=== PATIENT | female | born 1970 | race Caucasian/White ===

== ENCOUNTER 2017-05-26 08:04 | Observation (INO) | payer OTHER ==
--- NOTE | 2017-05-24 17:50 | Diagnostic Imaging Report ---
PROCEDURE: Frontal and lateral views of the chest. COMPARISON: None. INDICATIONS: PRE-OP ON CERVICAL SPINE FINDINGS: Lines/tubes: None. Lungs: The lungs are well inflated and clear. There is no evidence of pneumonia or pulmonary edema. Tiny right basilar nodular density, likely a calcified granuloma. Pleura: There is no pleural effusion or pneumothorax. Heart and mediastinum: The heart and the mediastinum are normal. Bilateral breast implants. Bones: No acute bony abnormality. IMPRESSION: 1. No acute cardiopulmonary disease. Dictated by: Chapin Dickerson M.D. on 05/24/2017 at 17:57 Electronically approved by: Chapin Dickerson M.D. on 05/24/2017 at 17:57
--- NOTE | 2017-05-24 17:53 | Diagnostic Imaging Report ---
PROCEDURE: C-SPINE AP AND LAT WITH FLEX AND EXT COMPARISON: 01/01/16 INDICATIONS: PRE-OP ON CERVICAL SPINE FINDINGS: C1 through C7 are visualized on the lateral view. The spine is in anatomic alignment without evidence of fracture or subluxation. Vertebral body heights are maintained. Status post C5-C6 anterior fusion. Hardware is intact. No instability on flexion/extension views. The prevertebral soft tissues are normal. CONCLUSION: No acute fracture or subluxation of cervical spine. Status post anterior C5-C6 fusion without evidence of instability. Dictated by: Chapin Dickerson M.D. on 05/24/2017 at 18:00 Electronically approved by: Chapin Dickerson M.D. on 05/24/2017 at 18:00
[2017-05-24 17:54] LABS: BASOPHILS % 0.6 % (0.0-1.0); EOSINOPHILS # (AUTO) 0.1 (0.0-0.4); EOSINOPHILS % 2.3 % (0.0-6.0); HEMATOCRIT 36.9 % (34.2-44.1); HEMOGLOBIN 12.1 g/dL (12.0-16.0); LYMPHOCYTES % 37.5 % (18.0-39.1); MEAN CORPUSCULAR HEMOGLOBIN 28.7 pg (28-32); MEAN CORPUSCULAR HGB CONC 32.8 g/dL (31-35); MEAN CORPUSCULAR VOLUME 87.6 fL (81-99); MONOCYTES # (AUTO) 0.7 (0.2-0.8); MONOCYTES % 12.5 % (4.4-11.3); NEUTROPHILS # (AUTO) 2.5 (2.1-6.9); NEUTROPHILS % 46.9 % (38.7-80.0); PLATELET COUNT 295 x10e3/uL (140-360); RED BLOOD COUNT 4.21 x10e6/uL (3.6-5.1); RED CELL DISTRIBUTION WIDTH 12.7 % (11.7-14.4)
[2017-05-24 18:03] LABS: INR 0.8; PROTHROMBIN TIME 11.5 seconds (11.9-14.5)
[2017-05-24 18:04] LABS: PARTIAL THROMBOPLASTIN TIME 27.8 seconds (23.8-35.5)
[2017-05-24 18:08] LABS: ANION GAP 10.6 mmol/L (8-16); BLOOD UREA NITROGEN 16 mg/dL (7-26); BUN/CREATININE RATIO 20 (6-25); CALCIUM 8.6 mg/dL (8.4-10.2); CARBON DIOXIDE 27 mmol/L (22-29); CHLORIDE 106 mmol/L (98-107); CREATININE, SERUM 0.79 mg/dL (0.57-1.11); EST GLOMERULAR FILTRATION RATE > 60 ML/MIN (60-); GLUCOSE 93 mg/dL (74-118); POTASSIUM 3.6 mmol/L (3.5-5.1); SODIUM 140 mmol/L (136-145)
[~2017-05-26] VITALS: Ht 170.2 cm; Wt 77.6 kg
[~2017-05-26 08:04] MED LIST: BACITRACIN 50,000 UNIT VIAL ONE; BUPIVACAINE 0.5%/EPI 30 ML SDV INJ ONE; GELATIN SPONGE SZ 100 ONE; LIDOCAINE HCL (LTA) 4 ML SOLN ONE; THROMBIN FOR SOLN 5,000 UNIT VIAL ONE; TRAMADOL PO; ULTRAM 50MG50 MG PO
[2017-05-26] MEDS ORDERED: CEFAZOLIN SOD 1 GM/NS 50ML 50 ML IV ONE (08:36)
[2017-05-26] MEDS: LACTATED RINGER'S 1,000 ML IV SCH ×2 (11:51→20:11)
[2017-05-26] MEDS ORDERED: CEPACOL SORE THROAT LOZENGES PO PRN (12:00)
[2017-05-26] MEDS ORDERED: ACETAMINOPHEN 325 MG TAB PO PRN (12:00)
[2017-05-26] MEDS ORDERED: ZOLPIDEM TARTRATE 5 MG TAB PO PRN (12:00)
[2017-05-26] MEDS ORDERED: MORPHINE SULFATE 5 MG/ML VIAL IM PRN (12:00)
[2017-05-26] MEDS ORDERED: PROMETHAZINE HCL (IM) 25 MG/ML VIAL IM PRN (12:00)
[2017-05-26] MEDS ORDERED: MAGNESIUM/ALUMINUM/SIMETHICONE 30 ML UDC PO PRN (12:00)
[2017-05-26] MEDS ORDERED: HYDROMORPHONE 2MG/ML INJ IV PRN (12:00)
[2017-05-26] MEDS ORDERED: ONDANSETRON HCL INJ 2 MG/ML VIAL IV PRN (12:00)
[2017-05-26] MEDS ORDERED: FENTANYL CITRATE/PF 100MCG/2 ML INJ ONE ×2 (12:18→12:32)
[2017-05-26] MEDS ORDERED: MIDAZOLAM HCL 2 MG/2 ML VIAL ONE (12:32)
[2017-05-26 12:58] VITALS: BP 134/71
[2017-05-26] MEDS ORDERED: CEFAZOLIN SOD 1 GM/NS 50ML 50 ML IV SCH (14:00)
[2017-05-26] MEDS ORDERED: GLYCOPYRROLATE INJ 1MG/ 5 ML SYR ONE (14:16)
[2017-05-26] MEDS ORDERED: ROCURONIUM BROMIDE 10 MG/ML 5ML VIAL ONE (14:16)
[2017-05-26] MEDS ORDERED: DEXAMETHASONE SOD PHOS INJ 4 MG/ML VIAL ONE (14:16)
[2017-05-26] MEDS ORDERED: NEOSTIGMINE 5 MG/5ML SYR ONE (14:16)
[2017-05-26] MEDS ORDERED: ONDANSETRON HCL INJ 2 MG/ML VIAL ONE (14:16)
[2017-05-26] MEDS ORDERED: PROPOFOL IV EMULSION 10 MG/ML 20 ML VIAL ONE (14:16)
[2017-05-26] MEDS ORDERED: LIDOCAINE HCL 2% LOCAL INJ 5 ML SDV VIAL INJ ONE (14:16)
[2017-05-26] MEDS ORDERED: DESFLURANE 240 ML BTL INH ONE (14:16)
[2017-05-26] MEDS: WATER STERILE 10 ML VIAL IV SCH ×2 (14:17→22:11)
[2017-05-26] MEDS: CEFAZOLIN SOD 1 GM VIAL IV SCH ×2 (14:17→22:11)
[2017-05-26] MEDS: CARISOPRODOL 350 MG TAB PO PRN ×2 (14:40→22:42)
[2017-05-26] MEDS: OXYCODONE/ACETAMINOPHEN 5-325 1 EACH TABLET PO PRN ×2 (14:40→22:42)
[2017-05-26 14:52] VITALS: BP 134/71
[2017-05-26 15:37] VITALS: BP 122/75
--- NOTE | 2017-05-26 15:54 | Operative Report ---
DATE OF PROCEDURE: May 26, 2017 PREOPERATIVE DIAGNOSIS: C4-5 disk herniation above the level of previous C5-6 fusion. POSTOPERATIVE DIAGNOSIS: C4-5 disk herniation above the level of previous C5-6 fusion. PROCEDURES: 1. C4-5 anterior cervical diskectomy and microsurgical osteophyte resection and allograft fusion, 15773. 2. Preparation of iliac crest allograft, . 3. C4-5 anterior cervical plating with Synthes ZP end-plate, . 4. Removal of C5-6 plate, . 5. Exploration of C5-C6 fusion, . ANESTHESIA: General. INDICATIONS: The patient is a woman who has previously undergone C5-6 ACDF by nd with excellent results. She now presents with C4-5 disk herniation above the level of her previous fusion symptomatic with severe left C5 radiculopathy and deltoid weakness. She was taken to the operating room for C4-C5 anterior cervical decompression and fusion and removal of previous C5-6 plate. PROCEDURE: After induction of general anesthesia, the patient was placed on the operating table in the supine position. The right side of the neck was prepped and draped in sterile fashion. The fluoroscopic C-arm was positioned in cross-table lateral orientation. A transverse incision was created on right side of the neck superimposed on her previous incision scar. The platysma was divided in line with the incision. A subplatysmal dissection was carried out. An avascular plane of dissection was developed medially to the sternocleidomastoid muscle and was followed medial to the carotid sheath to the anterior border the cervical spine. The deep cervical fascia was opened. The esophagus was retracted to the left. The attachments of longus coli muscles to the anterior lateral aspects of vertebral bodies of C4, C5 and C6 were divided. The scar over the previous C5-6 plate was resected. The plate was exposed, each of the 4 locking screws and each of the 4 bone screws within the previous Synthes plate were unscrewed and removed. The plate was mobilized and removed. The underlying C5-6 fusion was explored and found to be solid. Attention was directed to the C4-C5 disk space. The anterior osteophyte was resected with a rongeur. Zwingle posts were inserted into C4 and C5. The Zwingle distractor was used to distract the disk space. The anterior annulus of the disk was incised with a number 11 blade. The contents of the disks were thoroughly evacuated with angled curets and pituitary rongeurs. The posterior osteophytes were meticulously drilled with a 2 mm cutting bur on a high-speed drill until they were completely removed. The posterior annulus of the disk, the herniated disk material, and the posterior longitudinal ligament were resected layer by layer until the dura was fully exposed and decompressed. The medial aspects of the uncinate processes were resected bilaterally to further expose and decompress the origins of the corresponding nerve roots. After satisfactory decompression had been achieved, the endplates were prepared for fusion. A piece of tricortical iliac crest allograft was cut to size and shape of the disk space and was inserted into the disk space under distraction of fluoroscopic guidance. The distraction was released and distraction posts were removed. A Synthes CSLP small stature anterior cervical plate was selected and affixed to vertebral bodies of C4 and C5 with 2 pairs of 14 mm screws x 4.35 mm diameter. The screws in C5 were existed through the existing holes. The screws at C4 were inserted through new holes drilled under lateral fluoroscopic guidance. All screws were locked with the appropriate locking screws. An excellent construct was obtained. The wound was copiously irrigated with Bacitracin solution. Meticulous hemostasis was secured. Retractor was removed. The platysma was closed with 3-0 Vicryl sutures. The skin was closed with 4-0 Monocryl sutures in subcuticular fashion. Steri strips and dressing were applied. The patient was awakened, extubated and taken to the postanesthesia care unit in stable condition. No intraoperative complications were encountered. Estimated blood loss was less than 10 mL. Job#: [id number]
[2017-05-26 19:45] VITALS: BP 115/74
[2017-05-27] VITALS: BP 113/60
[2017-05-27] MEDS: LACTATED RINGER'S 1,000 ML IV SCH (04:31)
[2017-05-27] MEDS: CARISOPRODOL 350 MG TAB PO PRN (06:57)
[2017-05-27] MEDS: CEFAZOLIN SOD 1 GM VIAL IV SCH (06:57)
[2017-05-27] MEDS: WATER STERILE 10 ML VIAL IV SCH (06:57)
--- NOTE | 2017-05-27 06:57 | Diagnostic Imaging Report ---
C-SPINE 2 VIEWS AP LATERAL Comparison: None Clinical history: Status post surgery, fusion Findings: Postsurgical change status post C4-5 ACDF. Interbody spacer at C5-6 with osseous bridging from prior fusion. Straightening of the normal cervical lordosis, which may be positional. Impression: Postsurgical changes status post C4-5 ACDF. Signed by: Dr Shilpa Allen MD on 05/27/2017 6:53 AM
[2017-05-27] MEDS: OXYCODONE/ACETAMINOPHEN 5-325 1 EACH TABLET PO PRN (06:58)
[2017-05-27 08:29] VITALS: BP 118/64
== END 2017-05-27 10:45 | disposition home or self-care (01) ==
LOC: OR 08:04 → IMCU 12:26
PROVIDERS: ADMIT Neurological Surgery; ATTEND Neurological Surgery
DX: M50.121 Cervical disc disorder at C4-C5 level with radiculopathy (principal); Z98.1 Arthrodesis status; Z45.89 Encounter for adjustment and management of other implanted devices; Z01.810 Encounter for preprocedural cardiovascular examination; Z01.812 Encounter for preprocedural laboratory examination; Z01.818 Encounter for other preprocedural examination
CPT/HCPCS: 20931; 22551; 22830; 22845; 22855; 36415; 71020; 72040; 72050; 77003; 80048; 81025; 85025; 85610; 85730; 86850; 86900; 88300; 88304; 93005; C1713 ×4; C1768; G0378 ×2; J0690 ×2; J1100; J2001; J2250; J2405

== ENCOUNTER → 2017-06-27 | Outpatient (CLI) | payer OTHER ==
[~2017-06-27] MED LIST changes: -BACITRACIN 50,000 UNIT VIAL ONE; -BUPIVACAINE 0.5%/EPI 30 ML SDV INJ ONE; -GELATIN SPONGE SZ 100 ONE; -LIDOCAINE HCL (LTA) 4 ML SOLN ONE; -THROMBIN FOR SOLN 5,000 UNIT VIAL ONE
--- NOTE | 2017-06-27 11:33 | Diagnostic Imaging Report ---
PROCEDURE:C-SPINE AP AND LAT WITH FLEX AND EXT COMPARISON:[facility], DX, C-SPINE 2 VIEWS AP \T\ LATERAL, 05/27/2017, 6:19. INDICATIONS:POST OP CHECK UP FINDINGS: The lateral view is visualized from the skull base to C7. The vertebral bodies are well-aligned. There are no fractures, lytic or blastic lesions. Old fusion at C5-C6. New fusion at C4-C5 with anterior plate and interbody bone graft. The disc-space heights are well-maintained. The C1/C2-odontoid interval is normal. No evidence of subluxation with flexion and extension. The pre-vertebral soft tissues are normal. CONCLUSION: Post surgical changes as described above. Hood Gandhi D.O. Dictated by: Hood Gandhi D.O. on 06/27/2017 at 11:42 Electronically approved by: Hood Gandhi D.O. on 06/27/2017 at 11:42
== END ==
LOC: RAD 08:40
PROVIDERS: ATTEND Neurological Surgery
DX: M50.20 Other cervical disc displacement, unspecified cervical region (principal); Z98.1 Arthrodesis status
CPT/HCPCS: 72050

== ENCOUNTER → 2018-01-19 | Outpatient (CLI) | payer OTHER ==
[~2018-01-19] MED LIST changes: +GADOBENATE DIMEGLUMINE 1 ML IV ONE
--- NOTE | 2018-01-19 12:54 | Diagnostic Imaging Report ---
PROCEDURE: MRI ABDOMEN WOW TECHNIQUE: Axial T1 in and out of phase, axial T2, fat-sat, coronal, T2 with and without fat-sat, axial DWI, and ADC MR images of the abdomen were performed before the intravenous administration of 14 cc of gadolinium. Axial T1, GRE dynamic images in precontrast, arterial, venous and delayed phases were performed, as well as subtraction images. Axial ASSETT fat-sat precontrast and delayed postcontrast images were also obtained. COMPARISON: None. INDICATIONS: Liver mass found on outside ultrasound screening FINDINGS: LOWER THORAX: Bilateral breast implants. Lung bases are grossly clear. LIVER: The liver is normal in size, measuring approximately 13.5 cm in the right midclavicular line. Normal contour. No hepatic signal abnormality. * 1.7 x 1.3 x 1.6 cm T1 hypointense, T2 hyperintense lesion in hepatic segment V (series 6, image 19), which contains any nonvascular septation. There is a focus of peripheral nodular discontinuous enhancement in the inferior aspect noted on the most delayed dynamic image (series 10, image 168). Delayed postcontrast image shows almost complete fill-in with contrast (series 11, images 17 and 18). No restricted diffusion. * 0.4 cm T2 hyperintense, T1 hypointense, nonenhancing lesion in hepatic segment VIII at the dome (series 5, image 3), consistent with a simple cyst No other focal lesions. BILIARY: No intra-or extrahepatic there ductal dilation. No intraluminal filling defect. Gallbladder is unremarkable. PANCREAS: No mass or ductal dilatation. SPLEEN: No splenomegaly. ADRENALS: No nodules. KIDNEYS: No hydronephrosis or mass in the imaged portion of the kidneys. PERITONEUM / RETROPERITONEUM: No upper abdominal free fluid. LYMPH NODES: No upper abdominal lymphadenopathy. VESSELS: Unremarkable. BONES AND SOFT TISSUES: No abnormal bone marrow signal. Soft tissues are unremarkable. IMPRESSION: 1. 1.7 cm lesion in hepatic segment V, with imaging characteristics consistent with a slow filling hemangioma. The outside ultrasound screening exam is not available for comparison. Vipin Guaman M.D. Dictated by: Vipin Guaman M.D. on 01/19/2018 at 13:00 Electronically approved by: Vipin Guaman M.D. on 01/19/2018 at 13:00
== END ==
LOC: MRI 08:33
PROVIDERS: ATTEND Family Medicine
DX: R16.0 Hepatomegaly, not elsewhere classified (principal)
CPT/HCPCS: 74183